=== PATIENT | male | born 1950 | race Caucasian/White ===

== ENCOUNTER 2020-02-11 17:28 | Observation (INO) ==
[2020-02-11] MEDS ORDERED: NS 0.9% 1000 ml BAG 1,000 ML IV ONE (17:56)
[2020-02-11 18:15] LABS: ABS Eosinophils 0.1 10^3/ul (0-0.6); ABS Lymphocytes 2.5 10^3/ul (1.0-4.8); ABS Monocytes 0.6 10^3/ul (0-0.8); ABS Neutrophils 3.1 10^3/ul (1.5-7.7); Eosinophil % 1.5 %; Hematocrit 43 % (42-52); Hemoglobin 14.6 g/dL (14.0-18.0); Mean Corpuscular HGB Conc 34 g/dL (31-36); Mean Corpuscular Hemoglobin 30 pg (27-31); Mean Corpuscular Volume 89 fL (80-94); Platelet Count 237 10^3/uL (150-450); Red Blood Count 4.83 10^6 /uL (4.18-5.48); Red Cell Distribution Width 13 % (10-15); White Blood Count 6.4 10^3/uL (3.5-10.8)
[2020-02-11] MEDS ORDERED: Iodixanol (CONTRAST) 320 MG/ML 100 ML SDV IV ONE (18:19)
[2020-02-11 18:36] LABS: ALT 12 U/L (7-52); AST 16 U/L (13-39); Albumin 3.9 g/dL (3.2-5.2); Albumin/Globulin Ratio 1.3 (1-3); Alkaline Phosphatase 39 U/L (34-104); Anion Gap 6 mmol/L (2-11); BUN/Creatinine Ratio 21.2 (8-20); Blood Urea Nitrogen 24 mg/dL (6-24); CO2 Carbon Dioxide 27 mmol/L (22-32); Calcium 8.8 mg/dL (8.6-10.3); Chloride 105 mmol/L (101-111); Cholesterol 205 mg/dL; EGFR African American 78.3 (>60); EGFR Non-African American 64.7 (>60); Glucose 103 mg/dL (70-100); HDL Cholesterol 66.1 mg/dL; LDL Cholesterol 105 mg/dL; Potassium 3.2 mmol/L (3.5-5.0); Sodium 138 mmol/L (135-145); Total Protein 6.9 g/dL (6.4-8.9); Triglycerides 170 mg/dL
[2020-02-11 18:37] LABS: Troponin I 0.03 ng/mL (<0.03)
[2020-02-11 19:18] LABS: Activated Partial Thrombo Time 27.9 seconds (26.0-38.0); INR 1.02 (0.82-1.09)
[2020-02-11 19:20] LABS: Urine Appearance Clear; Urine Bilirubin Negative (Negative); Urine Blood Negative (Negative); Urine Color Yellow; Urine Glucose Negative (Negative); Urine Ketones Trace (Negative); Urine Nitrite Negative (Negative); Urine Protein Negative (Negative); Urine Specific Gravity 1.032 (1.010-1.030); Urine Urobilinogen Negative (Negative)
[2020-02-11] MEDS ORDERED: Potassium Chlor 20 meq TAB.ER PO ONE (19:50)
[2020-02-11] MEDS ORDERED: Ondansetron 4 mg VIAL 2 MG/ML 2 ml VIAL IV PRN (19:51)
[2020-02-11 22:31] LABS: Troponin I 0.04 ng/mL (<0.03)
[2020-02-12 02:07] LABS: Troponin I 0.03 ng/mL (<0.03)
[2020-02-12 07:08] LABS: EGFR African American 84.3 (>60); EGFR Non-African American 69.7 (>60); Potassium 4.3 mmol/L (3.5-5.0)
[2020-02-12] MEDS ORDERED: Pneumococcal Vac 23-Polyvalent IM ONE (09:00)
[2020-02-12] MEDS ORDERED: Perflutren Lipid Microsphere 3 ML VIAL ONE (11:31)
[2020-02-12 17:12] VITALS: BP 145/80
== END 2020-02-12 17:35 | disposition home or self-care (01) ==
LOC: MEDTELE 17:28 → ED 17:28 → MERGE 19:45
PROVIDERS: ADMIT Internal Medicine; ATTEND Internal Medicine